=== PATIENT | female | born 1950 | race Caucasian/White ===

== ENCOUNTER 2020-06-24 15:00 | Outpatient (REF) | payer MEDICARE, SELFPAY ==
[2020-06-25 18:32] LABS: Immunoglobulin A 295 mg/dL (70-320)
[2020-06-26 21:27] LABS: Gliadin Deamidated IgA Ab 5 Units; Gliadin Deamidated IgG Ab 4 Units
[2020-06-28 11:56] LABS: Endomysial IgA Antibody Negative (Negative)
[2020-06-29 20:27] LABS: Transglutaminase Ab IgG 7 U/mL; Transglutaminase IgA 1 U/mL
== END 2020-06-24 15:01 | disposition home or self-care (01) ==
LOC: HO.LAB 15:00
PROVIDERS: PCP Internal Medicine; Visit Provider Internal Medicine
DX: K58.0 Irritable bowel syndrome with diarrhea (principal)
CPT/HCPCS: 36415; 82784; 83516; 86255; 86256

== ENCOUNTER 2021-01-04 11:24 | Day surgery (SDC) | payer MEDICARE, SELFPAY ==
[2020-12-30 15:11] VITALS: BMI 29.2
--- NOTE | 2021-01-04 11:50 | P.CONAN_ITS ---
HPI - Anesthesia Eval Consult details Narrative: 70 yo female patient here for EGD, Colonoscopy PMFSH Past Medical History Medical History Depression GERD (gastroesophageal reflux disease) History of anxiety History of IBS Hx of breast cancer Osteoporosis Family History Family history of problems with anesthesia: No Surgical History Surgical History H/O colonoscopy Hx of bilateral mastectomy Hx of cholecystectomy Hx of hysterectomy History of Problems with Anesthesia: Yes (PONV with hysterectomy) Social History Social History (Updated 01/04/21 @ 12:25 by Georgia Ariza) Smoking Status: Former smoker Years Smoked: Remote h/o smoking as a teenager Use of substances other than those prescribed or required for medical reasons: No Advance Directives Information Provided: No Meds Allergies Allergy/AdvReac Type Severity Reaction Status Date / Time cephalexin [From Keflex] Allergy Severe RASH Verified 01/04/21 11:42 ciprofloxacin [From CIPRO] Allergy Severe LIP Verified 01/04/21 11:42 SWELLING penicillin G [Penicillin G] Allergy Severe SOB Verified 01/04/21 11:42 amoxicillin [Augmentin] Allergy Intermediate SOB Verified 01/04/21 11:42 clavulanic acid [Augmentin] Allergy Intermediate SOB Verified 01/04/21 11:42 Sulfa (Sulfonamide Allergy Intermediate BLISTERY Verified 01/04/21 11:42 Antibiotics) RASH [SULFA (SULFONAMIDE ANTIBIOTICS)] Active Medications: Current Medications Generic Name Dose Route Start Last Admin Trade Name Freq PRN Reason Stop Dose Admin Sodium Biphosphate/Sodium Phosphate 133 ml 01/04/21 11:33 Sodium Phosphate,[place]-Dibasic 133 Ml Enema OK ONCE PRN Poor Colonoscopy Prep Results Home Medications Medication Instructions Recorded Confirmed Last Taken Type cetirizine 10 mg PO DAILY 12/30/20 12/30/20 Unknown History clonazepam 0.5 mg PO BID PRN 12/30/20 12/30/20 Unknown History duloxetine 30 mg PO DAILY 12/30/20 12/30/20 Unknown History multivitamin 1 tab PO DAILY 12/30/20 12/30/20 Unknown History omega-3 fatty acids [[place] 3 Fish 1,000 mg PO DAILY 12/30/20 12/30/20 Unknown History Oil] omeprazole 20 mg PO DAILY 12/30/20 12/30/20 Unknown History Exam Exam Date and Time: January 04, 2021 1150 Height,Weight and Vital Signs: Height 5 ft 7 in Weight 84.822 kg Vital Signs Temp Pulse Resp BP Pulse Ox 01/04/21 11:53 98.3 F 84 16 145/70 H 97 Airway Mallampati Class: III TM Dist: >3cm Neck ROM: Limited (Neck problems- has seen chiropractor in the past. Will positon self pre-procedure) Heart: RRR Lungs: CTAB Assessment and Plan Assessment Anesthesia Assessment: Anesthesia Plan Discussed and Chart Reviewed Final Anesthetic Review NPO: Yes ASA Class: II Final Preanesthetic Review: No Changes in Pt Med Stat, Meds/Allgs Chart Reviewed, Consent Obtained/Reviewed and Anes Risks/Benef Reviewed Patient Risk: Low Procedure Risk: Low Assessment/Block/Sedation in SS: Assess/Block/Sedation-SS Anesthetic Plan Anesthetic Plan: MAC: Disposition: Standard PACU
[2021-01-04 11:53] VITALS: BP 145/70; PULSE 84; RESP 16; TEMP 36.8; O2SAT 97
[2021-01-04] MEDS: Lactated Ringers 1,000 ML 100 ML IVCONT (12:09)
[2021-01-04 14:39] VITALS: BP 104/79; PULSE 85; RESP 16; TEMP 36.4; O2SAT 97
--- NOTE | 2021-01-04 14:46 | PM.OP ---
Brief Operative Note Date of Service: 01/04/21 Pre-op diagnosis: GERD, IBS, Screening Post-op diagnosis: other (Hiatal hernia, GERD, gastric polyps, R/O Celiac disease, Diverticulosis, Internal hemorrhoids) Procedure: EGD with biopsies, Colonoscopy to the cecum Surgeon: Nile Sarabia Anesthesia: MAC Estimated blood loss (mL): 3.0 Pathology: other (A. Descending duodenum B. Gastric antrum C. Gastric antrum D. EG Junction at 38cm) Condition: stable Disposition: PACU
[2021-01-04 14:53] VITALS: BP 115/50; PULSE 76; RESP 18; O2SAT 100
[2021-01-04 15:14] VITALS: TEMP 36.7
--- NOTE | 2021-01-04 20:53 | OP_ITS ---
SURGEON: Nile Sarabia MD INDICATIONS: The patient presents for evaluation of gastroesophageal reflux, family history of colon cancer, colorectal cancer screening, and irritable bowel syndrome. Full consent has been obtained from her for this, including risks of bleeding and perforation. PREOPERATIVE DIAGNOSIS: POSTOPERATIVE DIAGNOSIS: PROCEDURE PERFORMED: Esophagogastroduodenoscopy with biopsies, and colonoscopy to cecum. ESTIMATED BLOOD LOSS: COMPLICATIONS: ANESTHESIA: Monitored anesthesia care. ASSISTANTS: SPECIMENS: PREOPERATIVE DIAGNOSES: Gastroesophageal reflux, family history of colon cancer, colorectal cancer screening, irritable bowel syndrome. POSTOPERATIVE DIAGNOSES: Gastroesophageal reflux, family history of colon cancer, colorectal cancer screening, irritable bowel syndrome, rule out celiac disease, gastric polyps, hiatal hernia, reflux, diverticulosis, and internal hemorrhoids. DESCRIPTION OF PROCEDURE: The patient was placed in the left lateral decubitus position. The Olympus video gastroscope was passed in the posterior oropharynx and upper esophagus under direct vision. The scope was passed slowly into the distal esophagus. The gastroesophageal junction appeared at 38 cm. There was some slight irregularity, but no evidence of esophagitis nor any definitive evidence of Garcia's mucosa. There was a small hiatal hernia. The scope was advanced to pylorus and duodenum was cannulated to the descending portion. The duodenum including the bulb appeared normal without mass or ulceration. Biopsies were obtained from the 2nd and 3rd portions of duodenum. The scope was withdrawn back in the stomach. The gastric antrum and body appeared to have some areas of erythema and edema consistent with some mild gastritis, but no erosions nor ulceration. There was good peristalsis. Biopsies were obtained from the gastric antrum. The scope was retroflexed visualizing the proximal stomach carefully, which appeared normal, without any sign of mass or ulceration, other than some hyperplastic appearing gastric polyps. Two of these were biopsied. The scope was withdrawn back into the esophagus. Biopsies were obtained at the EG junction. Proximal to this, the esophageal mucosa appeared normal. The scope was withdrawn from the patient. She was turned around for colonoscopy. The digital rectal exam revealed no abnormalities. The Olympus video pediatric colonoscope was entered into the rectum and advanced easily to the cecum. Once in the cecum, I did identify normal-appearing cecal pouch with appendiceal orifice and a normal-appearing ileocecal valve. There was transillumination of light deep in the right lower quadrant. The entire cecum and ileocecal valve appeared normal. The scope was slowly withdrawn assessing all mucosal surfaces carefully. Preparation was excellent. I did not visualize any sign of polyps, colitis, nor angiodysplasia. There was a mild amount of sigmoid diverticulosis. In the rectum, scope was retroflexed visualizing internal hemorrhoids, but no other pathology. The rectal mucosa appeared normal. The scope was straightened out and withdrawn from the patient. She tolerated the procedure well and was returned to the recovery area in stable condition. IMPRESSION: 1. Small hiatal hernia, gastroesophageal reflux. 2. Gastric polyps. 3. Mild gastritis. 4. Rule out celiac disease. 5. Diverticulosis. 6. Internal hemorrhoids. PLAN: The results of the biopsies will be checked. She will continue her omeprazole for symptomatic relief of her reflux. If Helicobacter pylori is present in the gastric biopsies, I would not initially treat that at this time given no history of ulcer disease and currently no symptoms. I would recommend a repeat colonoscopy in 5 years for further screening. She was advised not to use any aspirin and NSAIDs for 1 week. This has been discussed with her daughter. MD PAMELA Ram/YEMI / [phone]
== END 2021-01-04 15:32 | disposition home or self-care (01) ==
PROVIDERS: PCP Internal Medicine; Visit Provider Internal Medicine
PROC: (CPT 43239; principal; 2021-01-04 12:40)
DX: Z12.11 Encounter for screening for malignant neoplasm of colon (principal); Z80.0 Family history of malignant neoplasm of digestive organs; K57.30 Diverticulosis of large intestine without perforation or abscess without bleeding; K64.8 Other hemorrhoids; K58.0 Irritable bowel syndrome with diarrhea; K21.9 Gastro-esophageal reflux disease without esophagitis; K31.7 Polyp of stomach and duodenum; K29.70 Gastritis, unspecified, without bleeding; K44.9 Diaphragmatic hernia without obstruction or gangrene; Z85.3 Personal history of malignant neoplasm of breast; Z79.899 Other long term (current) drug therapy
CPT/HCPCS: 43239; G0105; 88305; 88342

== ENCOUNTER 2023-10-09 15:14 | Outpatient (AMB) | payer MEDICARE, SELFPAY ==
[2023-10-09 15:58] VITALS: BP 112/60; PULSE 84; TEMP 36.8; O2SAT 97; BMI 28.3
--- NOTE | 2023-10-09 15:58 | AM.OFFWIN_ITS ---
Intake Vital Signs 10/09/23 15:58 Height 5 ft 7 in Weight 180 lb 8 oz BMI 28.3 BP 112/60 Blood Pressure Location Rt brachial Position Sitting Pulse 84 Pulse Source Pulse Oximeter Temp 98.3 F Temp Source Oral Pulse Oximetry (%) 97 Oxygen Delivery Method Room Air Intake Visit Reasons: EP RT middle finger needle stick in lobby Intake Note: Pt is here c/o needle stick on her right middle finger. Pt states she was moving dirty needles and one pricked her. Patient Tobacco Use Status: Never used Tobacco Allergies cephalexin [From Keflex] Allergy (Severe, Verified 10/10/23 14:44) RASH ciprofloxacin [From CIPRO] Allergy (Severe, Verified 10/10/23 14:44) LIP SWELLING penicillin G [Penicillin G] Allergy (Severe, Verified 10/10/23 14:44) SOB amoxicillin [Augmentin] Allergy (Intermediate, Verified 10/10/23 14:44) SOB clavulanic acid [Augmentin] Allergy (Intermediate, Verified 10/10/23 14:44) SOB Sulfa (Sulfonamide Antibiotics) [SULFA (SULFONAMIDE ANTIBIOTICS)] Allergy (Intermediate, Verified 10/10/23 14:44) BLISTERY RASH Medication List - Last Reconciled 10/10/23 by Scot Sifuentes MD cetirizine 10 mg PO DAILY clonazepam 0.5 mg PO BID PRN duloxetine 30 mg PO DAILY emtricitabine-tenofovir (TDF) 200-300 mg ([place]) 1 tab PO DAILY multivitamin 1 tab PO DAILY omega-3 fatty acids 1,000 mg PO DAILY omeprazole 20 mg PO DAILY ondansetron 4 mg PO Q8H raltegravir 400 mg PO BID Do you need a note to return to daycare/school/sports/work: No HPI EP RT middle finger needle stick in lobby HPI Details 73-year-old female presents to the offic e for a sick visit. 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 As a part of her job description she has to empty out use needles into a safety container. Patient was poked by 1 of the needles. Blood appeared at the site of puncture. Patient presents here for post exposure prophylaxis. The needles were collected from the community and patient has no idea who had used that particular needle. [facility] Medical History Depression GERD (gastroesophageal reflux disease) History of anxiety History of IBS Hx of breast cancer Osteoporosis Surgical History H/O colonoscopy Hx of bilateral mastectomy Hx of cholecystectomy Hx of hysterectomy Social History (Updated 01/04/21 @ 12:25 by Georgia Ariza MD) Patient Tobacco Use Status: Never used Tobacco Years Smoked: Remote h/o smoking as a teenager Physical Exam Vital Signs: Last Vital Signs Temp 98.3 F 10/09/23 15:58 Pulse 84 10/09/23 15:58 BP 112/60 10/09/23 15:58 Pulse Ox 97 10/09/23 15:58 Oxygen Delivery Method Room Air 10/09/23 15:58 BMI result Body Mass Index 28.3 Skin Other: Right index finger: Puncture wound which has stopped bleeding. Assessment & Plan Assessment & Plan (1) Needlestick injury accident with exposure to body fluid: Code(s): W46.1XXA - Contact with contaminated hypodermic needle, initial encounter Plan: Patient has to receive the full post exposure prophylaxis for a needlestick injury. Unable to trace the the source for the needle. To medications pres cribed and blood work has been ordered. Since these medications cause significant nausea, Zofran has been ordered to. Orders: Orders HIV Ab/Ag 10/09/23 W46.1XXA - Contact with contaminated hypodermic needle, initial encounter Liver Panel 10/09/23 W46.1XXA - Contact with contaminated hypodermic needle, initial encounter Complete Blood Count no Diff 10/09/23 W46.1XXA - Contact with contaminated hypodermic needle, initial encounter Basic Metabolic Panel 10/09/23 W46.1XXA - Contact with contaminated hypodermic needle, initial encounter Hepatitis A,B,C Profile 10/09/23 W46.1XXA - Contact with contaminated hypodermic needle, initial encounter Medications: New raltegravir 400 mg PO BID 56 tabs 0RF ondansetron 4 mg PO Q8H 30 tabs 0RF emtricitabine-tenofovir (TDF) 200-300 mg ([place]) 1 tab PO DAILY 28 tabs 0RF Coding Level of Care Code New Pt Level 3 (06401) Diagnoses Needlestick injury accident with exposure to body fluid W46.1XXA
== END 2023-10-09 16:54 | disposition home or self-care (01) ==
PROVIDERS: PCP Internal Medicine; Visit Provider Internal Medicine
DX: S61.209A Unspecified open wound of unspecified finger without damage to nail, initial encounter (principal); W46.1XXA Contact with contaminated hypodermic needle, initial encounter
CPT/HCPCS: 99203

== ENCOUNTER 2023-12-08 11:25 | Outpatient (AMB) | payer MEDICARE, SELFPAY ==
[2023-12-08 11:36] VITALS: BP 120/100; PULSE 100; TEMP 36.9; O2SAT 99; BMI 27.9
--- NOTE | 2023-12-08 11:36 | MHC.OFFWIV ---
Intake Vital Signs 12/08/23 11:36 Height 5 ft 7 in Weight 178 lb BMI 27.9 BP 120/100 H Blood Pressure Location Lt brachial Position Sitting Pulse 100 Pulse Source Pulse Oximeter Temp 98.4 F Temp Source Temporal Artery Scan Pulse Oximetry (%) 99 Oxygen Delivery Method Room Air Intake Visit Reasons: EP ?Sinus Infection Intake Note: pt is here today for sinus infection started Monday Patient Tobacco Use Status: Never used Tobacco Allergies cephalexin [From Keflex] Allergy (Severe, Verified 12/08/23 11:39) RASH ciprofloxacin [From CIPRO] Allergy (Severe, Verified 12/08/23 11:39) LIP SWELLING penicillin G [Penicillin G] Allergy (Severe, Verified 12/08/23 11:39) SOB amoxicillin [Augmentin] Allergy (Intermediate, Verified 12/08/23 11:39) SOB clavulanic acid [Augmentin] Allergy (Intermediate, Verified 12/08/23 11:39) SOB Sulfa (Sulfonamide Antibiotics) [SULFA (SULFONAMIDE ANTIBIOTICS)] Allergy (Intermediate, Verified 12/08/23 11:39) BLISTERY RASH Do you need a note to return to daycare/school/sports/work: Yes HPI HPI Comments History of Present Illness Details This is a 73-year-old female with a past medical history of anxiety, depression and irritable bowel syndrome presenting for evaluation of a cough and postnasal drip that she has had since Monday. Patient denies having any fevers, chills, sore throat, shortness of breath or chest pain. Patient does report a fullness in her right ear. Patient has been taking Tylenol, drinking tea and taking Robitussin without complete relief of her symptoms. Her last dose of Tylenol was yesterday. Patient does state that she has a history of seasonal allergies and was on both fluticasone nasal spray and Zyrtec approximately 1 year ago. [facility] Medical History Osteoporosis Hx of breast cancer Depression History of anxiety History of IBS GERD (gastroesophageal reflux disease) Surgical History H/O colonoscopy Hx of bilateral mastectomy Hx of cholecystectomy Hx of hysterectomy Social History (Updated 01/04/21 @ 12:25 by Georgia Ariza MD) Patient Tobacco Use Status: Never used Tobacco Years Smoked: Remote h/o smoking as a teenager Review of Systems Const Denies chills, Denies fatigue, Denies fever(s) and Denies headache(s) Eyes Reports no additional complaints ENT Reports otalgia (right ear fullness), Denies headache(s), Reports post nasal drip, Denies tinnitus and Reports sinus pressure Card Reports no additional complaints and Denies dyspnea Resp Reports cough, Denies hemoptysis, Denies dyspnea and Denies wheezing GI Reports no additional complaints Skin/Breast Reports system reviewed and no additional complaints, except as documented Neuro Denies headache(s) Endo Denies fatigue Aller/Immun Denies wheezing Physical Exam Vital Signs: Last Vital Signs Temp 98.4 F 12/08/23 11:36 Pulse 100 12/08/23 11:36 BP 120/100 H 12/08/23 11:36 Pulse Ox 99 12/08/23 11:36 Oxygen Delivery Method Room Air 12/08/23 11:36 BMI result Body Mass Index 27.9 repeat BP 124/82 Const Other: Patient is afebrile General: cooperative, healthy appearing, comfortable, no acute distress, alert and awake Nutritional Appearance: average body habitus Orientation/consciousness: patient oriented x3 Limitations: no limitations HEENT Head: Yes normal to inspection and Yes normocephalic Ears: hearing grossly normal bilaterally, external ears normal, TM's abnormal bilaterally (TMs bulging bilaterally without erythema or fluid level) and EAC's normal General nose exam: Normal external nose present Face and sinus: Yes normal facial exam and Yes sinuses nontender Mouth: Normal oral and palatal mucosa present and moist mucous membranes Teeth and gingiva: dentition normal Throat: Yes posterior oropharynx normal (There is no edema, erythema or exudates of the posterior oropharynx) and Yes postnasal drainage Eyes Alignment and Position: alignment normal Periorbital: periorbital findings normal Eyelids: Yes eyelids normal Conjunctivae: conjunctivae normal Sclerae: sclerae normal Corneas: corneas normal Pupils: Equal, round and reactive pupils present EOM: EOMs intact bilaterally Neck Lymphatic: no lymphadenopathy noted Resp Effort & Inspection: normal respiratory effort, able to speak in complete sentences, no audible wheezes, no cough, no respiratory distress and not tachypneic Auscultation: clear to auscultation bilaterally Cardio Rate: regular rate Rhythm: regular rhythm Skin General skin exam: no rashes or lesions noted Neuro General: patient oriented x3 Cranial nerves: Yes Equal, round and reactive pupils present Psych Appearance: grossly normal Mental Status: mental status grossly normal Insight: Good insight present (Psych) Judgement: Good judgement present (Psych) Assessment & Plan Assessment & Plan (1) Allergic rhinitis: Comment: There is no evidence of an acute otitis media, bacterial pharyngitis and her lungs are clear to auscultation bilaterally. Code(s): J30.9 - Allergic rhinitis, unspecified Qualifiers: Allergic rhinitis trigger: unspecified Allergic rhinitis seasonality: seasonal Qualified Code(s): J30.2 - Other seasonal allergic rhinitis Plan: Patient is instructed to use Claritin once daily and Mucinex with increased clear fluids daily. Patient will follow up with her primary care provider within 10-14 days if her symptoms do not resolve. Coding Level of Care Code Est Pt Level 3 (27569) Diagnoses Seasonal allergic rhinitis, unspecified trigger J30.2 Allergic rhinitis trigger: unspecified Allergic rhinitis seasonality: seasonal Time Spent (min) 20
== END 2023-12-08 12:58 | disposition home or self-care (01) ==
PROVIDERS: PCP Internal Medicine; Visit Provider Physician Assistant
DX: J30.2 Other seasonal allergic rhinitis (principal)
CPT/HCPCS: 99213

== ENCOUNTER 2023-12-12 12:35 | Outpatient (AMB) | payer MEDICARE, SELFPAY ==
[2023-12-12 13:14] VITALS: BP 118/60; PULSE 91; TEMP 36.8; O2SAT 96; BMI 27.9
--- NOTE | 2023-12-12 13:14 | MHC.OFFWIV ---
Intake Vital Signs 12/12/23 13:14 Height 5 ft 7 in Weight 178 lb BMI 27.9 BP 118/60 Blood Pressure Location Lt brachial Position Sitting Pulse 91 Pulse Source Pulse Oximeter Temp 98.2 F Temp Source Temporal Artery Scan Pulse Oximetry (%) 96 Oxygen Delivery Method Room Air Intake Visit Reasons: EP cough sinus pain pressure congestion (lobby) Intake Note: pt is here today for cough sinus pain pressure congestion started 12/07 Patient Tobacco Use Status: Never used Tobacco Allergies cephalexin [From Keflex] Allergy (Severe, Verified 12/12/23 13:57) RASH ciprofloxacin [From CIPRO] Allergy (Severe, Verified 12/12/23 13:57) LIP SWELLING penicillin G [Penicillin G] Allergy (Severe, Verified 12/12/23 13:57) SOB amoxicillin [Augmentin] Allergy (Intermediate, Verified 12/12/23 13:57) SOB clavulanic acid [Augmentin] Allergy (Intermediate, Verified 12/12/23 13:57) SOB Sulfa (Sulfonamide Antibiotics) [SULFA (SULFONAMIDE ANTIBIOTICS)] Allergy (Intermediate, Verified 12/12/23 13:57) BLISTERY RASH Medication List - Last Reconciled 12/12/23 by Scot Sifuentes MD clonazepam 0.5 mg PO BID PRN duloxetine 30 mg PO DAILY multivitamin 1 tab PO DAILY omega-3 fatty acids 1,000 mg PO DAILY omeprazole 20 mg PO DAILY Do you need a note to return to daycare/school/sports/work: Yes HPI EP cough sinus pain pressure congestion (lobby) HPI Details Patient presents for a sick visit. Reporting symptoms of sinus congestion, sore throat and difficulty swallowing. Low-grade fever. No family member is sick. No recent travel. Patient reports symptoms of malaise and fatigue. [facility] Medical History Osteoporosis Hx of breast cancer Depression History of anxiety History of IBS GERD (gastroesophageal reflux disease) Surgical History Hx of hysterectomy Hx of cholecystectomy Hx of bilateral mastectomy H/O colonoscopy Social History Patient Tobacco Use Status: Never used Tobacco Years Smoked: Remote h/o smoking as a teenager Physical Exam Vital Signs: Last Vital Signs Temp 98.2 F 12/12/23 13:14 Pulse 91 12/12/23 13:14 BP 118/60 12/12/23 13:14 Pulse Ox 96 12/12/23 13:14 Oxygen Delivery Method Room Air 12/12/23 13:14 BMI result Body Mass Index 27.9 Const General: cooperative and healthy appearing Nutritional Appearance: well nourished Orientation/consciousness: patient oriented x3 Limitations: no limitations HEENT Head: Yes normal to inspection Eyes General: appearance normal, both eyes and all related structures Neck Neck: Yes normal visual inspection Chest Chest palpation & inspection: normal palpation of entire chest wall Resp Effort & Inspection: normal respiratory effort Neuro General: patient oriented x3 Assessment & Plan Assessment & Plan (1) Upper respiratory tract infection: Code(s): J06.9 - Acute upper respiratory infection, unspecified Plan: Antibiotics ordered. Increase fluid intake. Tylenol for aches and pains. If symptoms worsen, follow-up here for a recheck. Coding Level of Care Code Est Pt Level 3 (40351) Diagnoses Upper respiratory tract infection J06.9
== END 2023-12-12 14:09 | disposition home or self-care (01) ==
PROVIDERS: PCP Internal Medicine; Visit Provider Internal Medicine
DX: J06.9 Acute upper respiratory infection, unspecified (principal)
CPT/HCPCS: 99213